=== PATIENT | male | born 1980 | race African-American/Black ===

== ENCOUNTER 2017-08-22 09:19 | Emergency (ER) | payer BC, OTHER ==
[~2017-08-22] VITALS: Ht 185.4 cm; Wt 78.0 kg
[2017-08-22] MEDS ORDERED: TETANUS, DIPHTHERIA, PERTUSSIS VAC/PF 0.5ML (>7YR OLD) IM ONE (12:15)
[2017-08-22] MEDS ORDERED: BACITRACIN ZINC OINT UDPKT TOP ONE (12:15)
[2017-08-22] MEDS ORDERED: IBUPROFEN 800MG TABLET PO ONE (12:15)
[2017-08-22 13:58] VITALS: BP 112/70
== END 2017-08-22 14:09 | disposition home or self-care (01) ==
LOC: ER 10:06
DX: S90.811A Abrasion, right foot, initial encounter (principal); M79.641 Pain in right hand; F17.200 Nicotine dependence, unspecified, uncomplicated; F12.10 Cannabis abuse, uncomplicated; Z91.010 Allergy to peanuts; V03.90XA Pedestrian on foot injured in collision with car, pick-up truck or van, unspecified whether traffic or nontraffic accident, initial encounter; Y93.89 Activity, other specified; Y92.89 Other specified places as the place of occurrence of the external cause
CPT/HCPCS: 73110; 73130; 73630; 90471; 90715; 99284; Z7610